=== PATIENT | female | born 1980 ===

== ENCOUNTER 2016-10-26 19:00 | Emergency (ER) | payer MEDICAID ==
[2016-10-26 19:12] VITALS: BMI 29.6
[2016-10-26 19:22] VITALS: BP 118/80; PULSE 100; RESP 16; TEMP 99.1; O2SAT 100
--- NOTE | 2016-10-26 19:37 | ED PDOC ---
Arrival/HPI - General Chief Complaint: Abnormal Labs Time Seen by Provider: 10/26/16 19:13 - History of Present Illness Narrative History of Present Illness (Text): 10/26/16 19:33 36yo female with a hx of anemia, fibroids, and multiple transfusions in the past , presents with Hb 6.4, taken outpatient last week. pt states she is on her last day of her menses right now. Pt denies weakness, denies cp/sob/eisenberg, denies abd pain. States she has no complaints. Past Medical History - Provider Review Nursing Documentation Reviewed: Yes - Infectious Disease Hx of Infectious Diseases: None - Tetanus Immunization Tetanus Immunization: Unknown - Cardiac Hx Cardiac Disorders: No - Pulmonary Hx Respiratory Disorders: Yes Hx Asthma: Yes - Neurological Hx Neurological Disorder: No - HEENT Hx HEENT Disorder: No - Renal Hx Renal Disorder: No - Endocrine/Metabolic Hx Endocrine Disorders: No - Hematological/Oncological Hx Blood Disorders: Yes Hx Anemia: Yes Hx Blood Transfusions: Yes - Integumentary Hx Dermatological Disorder: No - Musculoskeletal/Rheumatological Hx Musculoskeletal Disorders: Yes (DISLOCATED DISKS 4YRS AGO) Hx Back Pain: Yes Hx Falls: No - Gastrointestinal Hx Gastrointestinal Disorders: No - Genitourinary/Gynecological Hx Genitourinary Disorders: No - Psychiatric Hx Psychophysiologic Disorder: No Hx Depression: No Hx Substance Use: No - Surgical History Hx Section: Yes (X 2) Other/Comment: Left side FALLOPIAN tube removed - Anesthesia Hx Anesthesia: Yes Hx Anesthesia Reactions: No - Suicidal Assessment Feels Threatened In Home Enviroment: No Family/Social History Family/Social History: Unknown Family HX Smoking Status: Light Smoker < 10 Cigarettes Daily Hx Alcohol Use: No Hx Substance Use: No Allergies/Home Meds Allergies/Adverse Reactions: Allergies No Known Allergies Allergy (Verified 10/27/16 07:43) Home Medications: Home Meds Medication Instructions Recorded Confirmed Ferrous Sulfate [Feosol] 325 mg PO BID 10/26/16 10/27/16 Physical Exam - Physical Exam Narrative Physical Exam (Text): 10/26/16 19:35 - Review of Systems Constitutional: Normal. absent: Fatigue, Weight Change, Fevers Eyes: Normal ENT: denies sore throat, denies tristhmus Respiratory: Normal. absent: SOB, Cough, Sputum Cardiovascular: absent: Chest Pain, Palpitations, Syncope Gastrointestinal: Normal. absent: Abdominal Pain, Diarrhea, Nausea, Vomiting Genitourinary: vaginal spotting. absent: Dysuria, Frequency, Hematuria Musculoskeletal: Normal. absent: Arthralgias, Back Pain, Neck Pain Skin: no rashes, no erythema Neurological: absent: Focal Weakness Endocrine: Normal Hemo/Lymphatic: Normal Psychiatric: No suicidal or homicidal ideations Physical exam Patient appears age appropriate in no distress, speaking full sentences without difficulty - Systems Exam Head: Present: Atraumatic, Normocephalic Pupils: Present: PERRL Extroacular Muscles: Present: EOMI Conjunctiva: Present: pale Mouth: Present: Moist Mucous Membranes Neck: Present: Normal Range of Motion. No: MIDLINE TENDERNESS, Paraspinal Tenderness Respiratory/Chest: Present: Clear to Auscultation, Good Air Exchange. No: Respiratory Distress, Accessory Muscle Use, Tachypneic Cardiovascular: Present: Regular Rate and Rhythm, Normal S1, S2, Peripheal Pulses Present. No: Murmurs Abdomen: Present: Normal Bowel Sounds. No: Tenderness, Distention, Peritoneal Signs, Rebound, Guarding Back: Present: Normal Inspection. No: Midline Tenderness, Paraspinal Tenderness Upper Extremity: Present: Normal Inspection. No: Cyanosis, Edema Lower Extremity: Present: Normal Inspection. No: Edema Neurological: Present: GCS=15, Speech Normal, cranial nerves II through XII fully intact with no cerebellar abnormality, neurosensory fully intact. No focal neurological deficits. Skin: Present: Warm, Dry, pale. No: Rashes Lymphatic: Present: OX3, NI, NC Psychiatric: Present: Alert, Oriented x 3, Normal Insight, Normal Concentration 10/26/16 19:36 Vital Signs Reviewed: Yes Vital Signs Temp Pulse Resp BP Pulse Ox 10/26/16 19:12 99.1 F 100 H 16 118/80 100 Temperature: Afebrile Blood Pressure: Normal Pulse: Tachycardic Respiratory Rate: Normal Appearance: Positive for: Well-Appearing Pain Distress: None Mental Status: Positive for: Alert and Oriented X 3 Medical Decision Making ED Course and Treatment: 10/26/16 19:35 36yo female with hx of anemia and mult transfusions states Hb was 6.4 last week labs ordered pt asymptomatic at this time and states she has no complaints HR 100 otherwise hemodynamically stable pale skin and conjunctiva pt aware that she will likely need a transfusion again and obs in the hospital 10/26/16 19:53 informed by pt's nurse that pt eloped Disposition/Present on Arrival - Present on Arrival Any Indicators Present on Arrival: No History of DVT/PE: No History of Uncontrolled Diabetes: No Urinary Catheter: No History of Decub. Ulcer: No History Surgical Site Infection Following: None - Disposition Have Diagnosis and Disposition been Completed?: Yes Diagnosis: Anemia Disposition: ELOPEMENT - ER ONLY Disposition Time: 19:54 Patient Problems: Current Active Problems Problem Status Onset Anemia Acute Condition: GUARDED Referrals: Perla Moody MD [Primary Care Provider] - Follow up with primary
--- NOTE | 2016-10-27 14:09 | CARD ---
APPROVED REPORT EKG Measurement Heart [id number] AL 124P50 [id number] <Conclusion> Normal sinus rhythm Normal ECG
== END 2016-10-26 19:40 | disposition left against medical advice (07) ==
LOC: ED 19:00
DX: D64.9 Anemia, unspecified (principal)

== ENCOUNTER 2018-01-28 14:06 | Emergency (ER) | payer MEDICAID ==
--- NOTE | 2018-01-28 14:25 | ED PDOC ---
Arrival/HPI - General Chief Complaint: Chest Pain Time Seen by Provider: 01/28/18 14:18 Historian: Patient - History of Present Illness Narrative History of Present Illness (Text): 01/28/18 14:25 A 37 year old female, whose past medical history includes a hysterectomy, tubal ligation, 2 c-sections and asthma, presents to the emergency department complaining of chest pain since 4 days ago. Patient reports experiencing associated cough, night sweats, and nasal congestion. Patient notes she is a current smoker of 16 years smoking 1 or 2 packs a day. Patient denies any fever , shortness of breath, diarrhea, nausea, vomiting, urinary symptoms, back pain , neck pain, headache, dizziness, or any other complaints. Dr. Perla Moody Time/Duration: Other (4 days) Symptom Onset: Gradual Symptom Course: Unchanged Quality: Pressure Context: Home Past Medical History - Provider Review Nursing Documentation Reviewed: Yes - Infectious Disease Hx of Infectious Diseases: None - Tetanus Immunization Tetanus Immunization: Unknown - Cardiac Hx Cardiac Disorders: No - Pulmonary Hx Asthma: Yes - Neurological Hx Neurological Disorder: No - HEENT Hx HEENT Disorder: No - Renal Hx Renal Disorder: No - Endocrine/Metabolic Hx Endocrine Disorders: No - Hematological/Oncological Hx Anemia: Yes - Integumentary Hx Dermatological Disorder: No - Musculoskeletal/Rheumatological Hx Musculoskeletal Disorders: Yes (DISLOCATED DISKS 4YRS AGO) Hx Back Pain: Yes - Gastrointestinal Hx Gastrointestinal Disorders: No - Genitourinary/Gynecological Hx Genitourinary Disorders: No - Psychiatric Hx Substance Use: No - Surgical History Hx Section: Yes (X 2) Hx Hysterectomy: Yes (2017) Other/Comment: Left side FALLOPIAN tube removed about 5yrs ago - Anesthesia Hx Anesthesia: Yes Hx Anesthesia Reactions: No Hx Malignant Hyperthermia: No - Suicidal Assessment Feels Threatened In Home Enviroment: No Family/Social History - Physician Review Nursing Documentation Reviewed: Yes Family/Social History: Unknown Family HX Smoking Status: Current Some Days Smoker Hx Alcohol Use: No Hx Substance Use: No Allergies/Home Meds Allergies/Adverse Reactions: Allergies No Known Allergies Allergy (Verified 10/27/16 07:43) Home Medications: Home Meds Medication Instructions Recorded Confirmed Ferrous Sulfate [Feosol] 325 mg PO BID 10/26/16 10/27/16 Review of Systems - Physician Review All systems were reviewed & negative as marked: Yes - Review of Systems Constitutional: Night Sweats. absent: Fevers ENT: Sinus Congestion Respiratory: Cough. absent: SOB Cardiovascular: absent: Chest Pain Gastrointestinal: absent: Diarrhea, Nausea, Vomiting Genitourinary Female: absent: Urine Output Changes Musculoskeletal: absent: Back Pain, Neck Pain Neurological: absent: Headache, Dizziness Physical Exam Vital Signs Reviewed: Yes Vital Signs Temp Pulse Resp BP Pulse Ox 01/28/18 17:39 98.2 F 85 123/63 98 01/28/18 14:07 98.9 F 101 H 18 138/88 99 Temperature: Afebrile Blood Pressure: Normal Pulse: Tachycardic Respiratory Rate: Normal Appearance: Positive for: Well-Appearing, Non-Toxic, Comfortable Pain Distress: None Mental Status: Positive for: Alert and Oriented X 3 - Systems Exam Head: Present: Atraumatic, Normocephalic Pupils: Present: PERRL Extroacular Muscles: Present: EOMI Conjunctiva: Present: Normal Mouth: Present: Moist Mucous Membranes Neck: Present: Normal Range of Motion Respiratory/Chest: Present: Wheezes (+wheezing bilterally). No: Clear to Auscultation, Good Air Exchange, Respiratory Distress, Accessory Muscle Use, Decreased Breath Sounds, Retracting, Rhonchi, Tachypneic, Tender to Palpation Cardiovascular: Present: Regular Rate and Rhythm, Normal S1, S2. No: Murmurs Abdomen: No: Tenderness, Distention, Peritoneal Signs Back: Present: Normal Inspection Upper Extremity: Present: Normal Inspection. No: Cyanosis, Edema Lower Extremity: Present: Normal Inspection. No: Edema Neurological: Present: GCS=15, CN II-XII Intact, Speech Normal Skin: Present: Warm, Dry, Normal Color. No: Rashes Psychiatric: Present: Alert, Oriented x 3, Normal Insight, Normal Concentration Medical Decision Making ED Course and Treatment: 01/28/18 14:31 Impression: 37 year old female presenting to the Emergency department complaining of chest pain. Heart Score Low. Asthma/bronchitis exacerbation 2ndary to nasal congestion likely. Gestalt very low for PE. Plan: -- EKG -- BType Natriuretic peptide -- Magnesium -- Troponin I -- CBC with differential -- Chest X-ray 2 views -- Motrin Tablet -- IV fluids -- Reassess and disposition Prior Visits: Notes and results from previous visits were reviewed. Progress Notes: 01/28/18 14:32 EKG: Ordered, reviewed, and independently interpreted the EKG. Rate : 99 BPM Rhythm : NSR Interpretation : No ST-segment elevations or depressions. 01/28/2018 16:01 Chest X-ray IMPRESSION: No active disease. Dictator: Lee Guajardo MD Pt endorsed improvement in symptoms. Troponin negative. Heart score 1 age 0 story 0 RF: 1 EKG 0 trop: 0 will d/c home with followup, bronchitis meds and asthma meds. 01/28/18 19:53 - Lab Interpretations Lab Results: 01/28/18 14:40 01/28/18 14:40 Lab Results 01/28/18 14:40: Sodium 146, Potassium 4.1, Chloride 108 H, Carbon Dioxide 25, Anion Gap 17, BUN 9, Creatinine 0.9, Est GFR ( Amer) > 60, Est GFR (Non- Af Amer) > 60, Random Glucose 91, Calcium 9.2, Magnesium 2.4 H, Total Bilirubin 0.5, AST 14, ALT 17, Alkaline Phosphatase 82, Troponin I < 0.01, NT-Pro-B Natriuret Pep 35.8, Total Protein 7.3, Albumin 4.3, Globulin 3.0, Albumin/ Globulin Ratio 1.5 01/28/18 14:40: WBC 8.3, RBC 5.31, Hgb 12.8, Hct 39.7, MCV 74.8 L, MCH 24.1 L, MCHC 32.2, RDW 14.2, Plt Count 275, MPV 10.0, Gran % 75.1 H, Lymph % (Auto) 17.0 L, Bullock % (Auto) 7.0 H, Eos % (Auto) 0.8 L, Baso % (Auto) 0.1, Gran # 6.20 , Lymph # (Auto) 1.4, Bullock # (Auto) 0.6, Eos # (Auto) 0.1, Baso # (Auto) 0.01 - RAD Interpretation Radiology Orders: 01/28/18 14:26 CHEST TWO VIEWS (PA/LAT) [RAD] Stat - Medication Orders Current Medication Orders: Discontinued Medications Albuterol/Ipratropium (Duoneb 3 Mg/0.5 Mg (3 Ml) Ud) 3 ml IH Q15M MARIANNE Stop: 01/28/18 16:01 Last Admin: 01/28/18 16:00 Dose: 3 ml Sodium Chloride (Sodium Chloride 0.9%) 1,000 mls @ 100 mls/hr IV .Q10H MARIANNE Last Admin: 01/28/18 14:44 Dose: 100 mls/hr eMAR Start Stop Document 01/28/18 14:44 SRE (Rec: 01/28/18 14:44 SRE [id number]) Intravenous Solution Start Date 01/28/18 Start Time 14:44 Ibuprofen (Motrin Tab) 600 mg PO STAT STA Stop: 01/28/18 14:27 Last Admin: 01/28/18 14:37 Dose: 600 mg MAR Pain/Vitals Document 01/28/18 14:37 SRE (Rec: 01/28/18 14:42 SRE [id number]) Pain Reassessment Is This A Pain ReAssessment? Yes Sleep Is patient sleeping during reassessment? No Presence of Pain Presence of Pain Yes Pain Scale Used Pain Scale Used Numeric Location Pain Location Body Site Chest Intensity 4 Methylprednisolone (Solu-Medrol) 125 mg IVP STAT STA Stop: 01/28/18 17:13 Last Admin: 01/28/18 17:26 Dose: 125 mg IVP Administration Document 01/28/18 17:26 SRE (Rec: 01/28/18 17:26 SRE [id number]) Charges for Administration # of IVP Administrations 1 - Scribe Statement The provider has reviewed the documentation as recorded by the Tiffanie Moulton All medical record entries made by the Manpreetibkiersten were at my direction and personally dictated by me. I have reviewed the chart and agree that the record accurately reflects my personal performance of the history, physical exam, medical decision making, and the department course for this patient. I have also personally directed, reviewed, and agree with the discharge instructions and disposition. Disposition/Present on Arrival - Present on Arrival Any Indicators Present on Arrival: No History of DVT/PE: No History of Uncontrolled Diabetes: No Urinary Catheter: No History of Decub. Ulcer: No History Surgical Site Infection Following: None - Disposition Have Diagnosis and Disposition been Completed?: Yes Diagnosis: Asthma exacerbation, Asthma, Viral bronchitis Disposition: HOME/ ROUTINE Disposition Time: 17:17 Condition: GOOD Discharge Instructions (ExitCare): Asthma, Adult (DC), Acute Bronchitis, How to Use a Nebulizer, Adult Additional Instructions: RAINA SAENZ, thank you for letting us take care of you today. Your provider was Law David and you were treated for CHEST PAIN. The emergency medical care you received today was directed at your acute symptoms. If you were prescribed any medication, please fill it and take as directed. It may take several days for your symptoms to resolve. Return to the Emergency Department if your symptoms worsen, do not improve, or if you have any other problems. Please contact your doctor or call one of the physicians/clinics you have been referred to that are listed on the Patient Visit Information form that is included in your discharge packet. Bring any paperwork you were given at discharge with you along with any medications you are taking to your follow up visit. Our treatment cannot replace ongoing medical care by a primary care provider outside of the emergency department. Thank you for allowing the [facility] team to be part of your care today. If you had an X-Ray or CT scan: A Radiologist will review the ED reading if any change in treatment is needed we will contact you. If you had a blood, urine, or wound culture: It will take several days for the results, if any change in treatment is needed we will contact you. If you had an STI test: It will take 48 hours for the results. Please call after 1 week if you have not heard back. Prescriptions: Albuterol HFA [Ventolin HFA 90 mcg/actuation (8 g)] 1 puff IH Q6H #1 inhaler Azithromycin [Z-Fernando] 250 mg PO DAILY #6 tab predniSONE [predniSONE Tab] 40 mg PO QAM 5 Days #10 tab Referrals: Perla Moody MD [Primary Care Provider] - Follow up with primary Forms: [email or web address] (Occitan)
[2018-01-28 14:28] VITALS: RESP 18; BMI 29.9
[2018-01-28] MEDS ORDERED: Sodium Chloride 0.9% 1,000 ML IV SCH (14:30)
[2018-01-28 14:50] LABS: BASO # 0.01 K/mm3 (0.0-2.0); BASO % 0.1 % (0.0-3.0); EOS # 0.1 (0.0-0.7); EOS % 0.8 % (1.5-5.0); GRAN # 6.2 (1.4-6.5); GRAN % 75.1 % (50.0-68.0); HEMOGLOBIN 12.8 g/dL (12.0-16.0); LYMPH # 1.4 (1.2-3.4); MEAN CELL VOLUME 74.8 fl (80.0-105.0); MEAN CORPUSCULAR HEMOGLOBIN 24.1 pg (25.0-35.0); MEAN CORPUSCULAR HGB CONC 32.2 g/dl (31.0-37.0); MONO # 0.6 (0.1-0.6); RBC 5.31 10^6/uL (3.5-6.1); RED CELL DISTRIBUTION WIDTH 14.2 % (11.5-14.5); WHITE BLOOD COUNT 8.3 10^3/ul (4.5-11.0)
[2018-01-28 15:01] LABS: ALB/GLOB RATIO 1.5 (1.1-1.8); ALBUMIN 4.3 g/dL (3.0-4.8); ALT/SGPT 17 U/L (7-56); AST/SGOT 14 U/L (14-36); BLOOD UREA NITROGEN 9 mg/dL (7-21); CALCIUM 9.2 mg/dL (8.4-10.5); GFR NON-AFRICAN AMERICAN > 60
[2018-01-28 15:13] LABS: B-TYPE NATRIURETIC PEPTIDE 35.8 pg/mL (0-450); TROPONIN I < 0.01 ng/mL
[2018-01-28] MEDS: Albuterol-Ipratrop 3 mg / 0.5 (3 ml) UD IH SCH ×3 (15:30→16:00)
--- NOTE | 2018-01-28 16:02 | RAD ---
Date of service: 01/28/2018 HISTORY: cp COMPARISON: 06/17/2016 TECHNIQUE: Chest PA and lateral FINDINGS: LUNGS: No active pulmonary disease. PLEURA: No significant pleural effusion identified. No pneumothorax apparent. CARDIOVASCULAR: Normal. OSSEOUS STRUCTURES: No significant abnormalities. VISUALIZED UPPER ABDOMEN: Normal. OTHER FINDINGS: None. IMPRESSION: No active disease.
[2018-01-28 17:40] VITALS: BP 123/63; PULSE 85; TEMP 98.2; O2SAT 98
--- NOTE | 2018-01-29 10:17 | CARD ---
APPROVED REPORT Date of service: 01/28/2018 EKG Measurement Heart [id number] ND 124P7 [id number] <Conclusion> Normal sinus rhythm Normal ECG
== END 2018-01-28 17:39 | disposition home or self-care (01) ==
LOC: ED 14:06
DX: J45.901 Unspecified asthma with (acute) exacerbation (principal)
CPT/HCPCS: 71046; 80053; 83735; 83880; 84484; 85025; 93005; 96374; 99283; J2930; J7030